=== PATIENT | female | born 2000 | race Caucasian/White ===

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

== ENCOUNTER 2020-05-15 13:25 | Outpatient (CLI) | payer BC, SELFPAY ==
[2020-05-17 23:23] LABS: Patient Race White; SARS-CoV-2 RNA Undetected (Undetected); SARS-CoV-2 Specimen Source Nasal
== END 2020-05-15 13:45 ==
PROVIDERS: PCP Pediatrics; Visit Provider Pediatrics
DX: Z20.828 Contact with and (suspected) exposure to other viral communicable diseases (principal)
CPT/HCPCS: U0003

== ENCOUNTER 2021-11-27 17:10 | Outpatient (REF) | payer BC, SELFPAY ==
[2021-11-29 12:00] LABS: COVID-19 RT-PCR UVMMC Result Negative (Negative)
== END 2021-11-27 17:11 | disposition home or self-care (01) ==
LOC: LBN 17:10
PROVIDERS: Visit Provider Physician Assistant Medical
DX: Z20.822 Contact with and (suspected) exposure to COVID-19 (principal); J06.9 Acute upper respiratory infection, unspecified
CPT/HCPCS: U0003

== ENCOUNTER 2022-02-03 19:32 | Emergency (ER) | payer BC, SELFPAY ==
[2022-02-03] VITALS (31 sets, daily range): BP systolic 99–143; BP diastolic 52–93; PULSE 98–142; RESP 16–23; TEMP 36.4; O2SAT 96–100
--- NOTE | 2022-02-03 19:51 | ED.GENADUL_ITS ---
Discharge Plan Disposition Patient Disposition: HOME Condition: Stable Discharge Details Clinical Impression: Allergic reaction, Urticaria Primary Care Provider: Laurel Lam ED Provider: Javon Goff Home Meds and New Rx's Prescriptions: New epinephrine 0.3 mg/0.3 mL auto-injector 0.3 mg IM ONCE Qty: 2 0RF Rx Instructions: as a single dose; may repeat once No Action medroxyprogesterone [Depo-Provera] 150 mg/mL syringe 150 mg IM [id number] magnesium 200 mg tablet 200 mg PO BID Qty: 60 1RF riboflavin (vitamin B2) 100 mg tablet 100 mg PO BID Qty: 60 1RF calcium carbonate [Calcium 600] 600 mg calcium (1,500 mg) tablet 600 mg PO DAILY sertraline [Zoloft] 100 mg tablet 100 mg PO DAILY Qty: 30 1RF Rx Instructions: take one tablet once a day bupropion HCl [Wellbutrin XL] 150 mg tablet extended release 24 hr 150 mg PO DAILY omeprazole 20 mg capsule,delayed release(DR/EC) 1 cap PO DAILY Label Comments: TAKE ONE CAPSULE BY MOUTH EVERY DAY albuterol sulfate 90 mcg/actuation HFA aerosol inhaler 2 inh INHALATION Q4H PRN PRN Label Comments: INHALE TWO PUFSS EVERY 4 HOURS NEEDED FOR SHORTNESS OF BREATH , WHEEZING, OR COUGH methylphenidate HCl [Concerta] 18 mg tablet extended release 24hr 18 mg PO BID MDD 36 mg Rx Instructions: one tablet twice a day at least 6 hours apart Discharge Instructions Instructions: Urticaria (ED) Additional Instructions: At this time your rash has resolved. It is unclear as to what caused it but it may have been a bug bite, a food allergy, or something else unknown. Please continue to drink plenty of fluid at home. Take 25 mg of Benadryl every 6-8 hours. Follow-up closely with your dietitian this week. An EpiPen has been sent to your pharmacy on file. Use this as directed if indicated. If you notice any worsening of your symptoms, or any new symptoms such as vomiting, diarrhea, fever, chills, shortness of breath, chest pain, numbness, weakness, or fainting , please return immediately to the emergency department for reevaluation. Please follow up with your primary care provider as soon as possible for reassessment and reevaluation. As always, it was a pleasure participating in your medical care today. Referrals: Laurel Lam [Primary Care Provider] - Discharge Data Discharge Date/Time-TO BE ENTERED AT DEPARTURE: 02/03/22 22:38 Medical Decision Making <Dinorah Chahal DO - Last Filed: 02/06/22 08:08> 21-year-old female with a history of anxiety, migraines and ADHD presents with pruritic rash noted to the upper extremities, chest and back that started almost 2 hours ago. No known new exposures. Admits to tongue tingling but denies any difficulty swallowing, difficulty breathing or vomiting. Heart rate 110s-120s. Patient appears anxious but nontoxic. She has normal respiratory rate and oxygen saturation. Normal oropharynx. Lungs clear bilaterally. She has scattered patchy erythema with urticaria noted to the bilateral upper extremities, lower chest and abdomen and back. Suspect allergic reaction. Considering her tachycardia and complaint of tingling in her tongue, will place an IV, give bolus IV fluids, IV Solu-Medrol, Pepcid, Benadryl and will monitor for the next 1 to 2 hours. Do not see an indication for epinephrine at this time but will continue to monitor. Case endorsed to oncoming provider to continue to monitor and if patient's symptoms improve, will plan for discharge to home. Medical Records Medical records reviewed: Yes I reviewed the patient's medical records. HPI <Dinorah Chahal DO - Last Filed: 02/06/22 08:08> General Mode of arrival: ambulatory . Date/Time Provider Initiated Documentation: 02/03/22 19:43 . Limitations to Documentation: no limitations . Information obtained by: patient . HPI Narrative: Patient is a 21-year-old female with a history of anxiety, migraines, ADHD who presents with itchy rash that started almost 2 hours ago. Patient states she noticed a bump under her left breast and then began itching on the sides of both breasts. She states she then noticed an itchy rash to her left inner wrist which has been spread to her abdomen and back. She denies any rash on her legs. She admits to tingling noted in her tongue prior to arrival but denies any difficulty swallowing, difficulty breathing or vomiting. Patient denies any known new meds, lotions, detergents, soaps, foods, animal exposures. Related Data Home Medications Medication Instructions Recorded Confirmed magnesium 200 mg tablet 200 mg PO BID #60 tabs 03/25/20 02/03/22 riboflavin (vitamin B2) 100 mg 100 mg PO BID #60 tabs 03/25/20 02/02/21 tablet calcium carbonate 600 mg calcium 600 mg PO DAILY 05/08/20 02/16/21 (1,500 mg) tablet (Calcium) sertraline 100 mg tablet (Zoloft) 100 mg PO DAILY #30 tabs 01/26/21 02/16/21 medroxyprogesterone 150 mg/mL 150 mg IM [id number] 02/02/21 02/03/22 intramuscular syringe (Depo-Provera) bupropion HCl 150 mg 24 hr tablet, 150 mg PO DAILY 01/27/22 02/03/22 extended release (Wellbutrin XL) albuterol sulfate 90 mcg/actuation 2 inh inhalation Q4H PRN PRN 02/03/22 02/03/22 aerosol inhaler epinephrine 0.3 mg/0.3 mL 0.3 mg (0.3 mL) IM ONCE #2 ea 02/03/22 injection, auto-injector methylphenidate HCl 18 mg 18 mg PO BID 02/03/22 02/03/22 tablet,extended release 24 hr (Concerta) omeprazole 20 mg capsule,delayed 1 cap PO DAILY 02/03/22 02/03/22 release Previous Rx's Medication Instructions Recorded magnesium 200 mg tablet 200 mg PO BID #60 tabs 03/25/20 riboflavin (vitamin B2) 100 mg 100 mg PO BID #60 tabs 03/25/20 tablet sertraline 100 mg tablet (Zoloft) 100 mg PO DAILY #30 tabs 01/26/21 epinephrine 0.3 mg/0.3 mL 0.3 mg (0.3 mL) IM ONCE #2 ea 02/03/22 injection, auto-injector Allergies Allergy/AdvReac Type Severity Reaction Status Date / Time house dust mite Allergy Mild Other (See Unverified 02/03/22 19:43 Comment) General Stated Complaint: Allergic MARIMAR: 3 Review of Systems <Dinorah Chahal DO - Last Filed: 02/06/22 08:08> All systems reviewed & are unremarkable except as noted in HPI and below Constitutional Constitutional: Denies chills, Denies excessive sweating, Denies fatigue, Denies fever(s), Denies weakness and Denies weight loss Eyes Eyes: Reports system reviewed and no additional complaints, except as documented and Denies blurry vision ENT Ears, Nose, Mouth, and Throat: Denies vertigo, Denies dizziness, Denies otalgia, Denies nasal congestion, Denies sore throat and Denies throat swelling Cardiovascular Cardiovascular: Denies chest pain, Denies syncope, Denies rapid heart rate and Denies dyspnea Respiratory Respiratory: Denies chest congestion, Denies cough, Denies pain on inspiration and Denies dyspnea Gastrointestinal Gastrointestinal: Denies abdominal pain, Denies diarrhea and Denies vomiting Genitourinary Genitourinary: Denies hematuria, Denies dysuria and Denies flank pain Musculoskeletal Musculoskeletal: Denies back pain and Denies joint swelling Integumentary/Breasts Skin/Breast: Reports lesions and Reports rash Neurologic Neurologic: Denies behavioral changes, Denies confusion, Denies vertigo, Denies dizziness, Denies syncope, Denies localized weakness and Denies weakness Psychiatric Psychiatric: Denies behavioral changes, Denies confusion and Denies depression Endocrine Endocrine: Denies excessive sweating and Denies fatigue Hematologic/Lymphatic Hematologic/Lymphatic: Denies easy bruising and Denies lymphadenopathy Allergic/Immunologic Allergic/Immunologic: Denies throat swelling PFSH <Dinorah Chahal DO - Last Filed: 02/06/22 08:08> All Active Problems (Updated 02/03/22 @ 19:59 by Dinorah Chahal DO) Allergic reaction (Acute) Urticaria (Acute) History of migraine headaches (Acute) Attention and concentration deficit (Acute) Social anxiety disorder (Acute) Chronic daily headache (Acute) Depression (Chronic) adverse reaction to fluoxetine - increased headaches. c/o excessive energy on Lexapro 5 mg. c/o excessive sedation and nausea on amitriptyline 10 mg Medical History (Updated 02/03/22 @ 19:59 by Dinorah Chahal DO) ADD (attention deficit disorder) Anxiety with depression Migraine, chronic, without aura Numbness and tingling in left arm Numbness and tingling of right arm Numbness in feet Obesity Self-imposed food restriction Family History Other Diabetes PGF Essential hypertension GP Heart disease PGM Hyperlipidemia GP Neoplasm PGM - breast PGF - Lukemia Paternal Grandmother Depression Social History (Updated 01/27/22 @ 08:11 by Ofe Armenta) Smoking/Tobacco Use Status: Never Smoking risk assessment performed?: Yes Alcohol Intake: current Alcohol Intake frequency: a few times a month Alcohol type: wine Drug use: Never Substance use type: does not use Do you feel safe at home: Yes Do you feel safe in your relationship?: Yes Exam <Dinorah Chahal DO - Last Filed: 02/06/22 08:08> Const General: cooperative and anxious Orientation: alert, awake and oriented x3 HENMT Head: normal to inspection Ears: hearing grossly normal bilaterally, external ears normal and TM's normal bilaterally General nose exam: external nose normal Face and sinus: normal facial exam Mouth: oral mucosae normal Teeth and gingiva: dentition normal Throat: posterior oropharynx normal Eyes General: appearance normal, both eyes and all related structures Eyelids: eyelids normal Pupils: PERRL EOM: EOM intact bilaterally Neck Neck: normal visual inspection Lymphatic: no lymphadenopathy noted Chest Chest: normal inspection of the chest Resp Effort & Inspection: normal respiratory effort and able to speak in complete sentences Auscultation: clear to auscultation bilaterally Cardio Rate: tachycardic Rhythm: regular rhythm GI Inspection: normal to inspection Palpation: soft, not firm, no guarding, no hepatosplenomegaly, no masses and nontender Auscultation: normal bowel sounds Back/Spine/Pelvis Back: no CVA tenderness Skin Other: Scattered patchy erythema with urticaria noted to the chest, abdomen, back and bilateral upper extremities. Neuro General: patient alert and patient awake Cognition: normal cognition Speech: speech normal Gait: normal gait Motor: muscle tone normal throughout Sensory Exam: no sensory deficits noted Extrem General: normal to inspection, full ROM and capillary refill normal Psych Appearance: grossly normal Mental Status: mental status grossly normal Speech and Movement: speech and movement normal Affect: normal affect Thought Process: normal Course <Dinorah Chahal DO - Last Filed: 02/06/22 08:08> Vital Signs Vital signs: Vital Signs Temperature 97.6 F 02/03/22 19:39 Pulse 119 H 02/03/22 19:39 Respiratory Rate 18 02/03/22 19:39 Blood Pressure 143/93 H 02/03/22 19:39 Pulse Oximetry 99 02/03/22 19:39 Temperature 97.6 F 02/03/22 19:39 Temperature Source Oral 02/03/22 19:39 Pulse 119 H 02/03/22 19:39 Respiratory Rate 18 02/03/22 19:39 Respiratory Effort Non-Labored 02/03/22 19:46 Respiratory Pattern Normal 02/03/22 19:46 Blood Pressure 143/93 H 02/03/22 19:39 Blood Pressure Position Sitting 02/03/22 19:39 Pulse Oximetry 99 02/03/22 19:39 Oxygen Delivery Method Room Air 02/03/22 19:39 Oxygen Flow Rate 0 02/03/22 19:39 Pain Level 0 02/03/22 19:39 Sign Out <Dinorah Chahal DO - Last Filed: 02/06/22 08:08> Sign Out Data: Sign Out Comment: Suspected allergic reaction with urticaria and tachycardia. No known history of anaphylaxis. Complained of tongue tingling but no respiratory distress. Monitor for 1 to 2 hours status post IV Solu-Medrol, Pepcid, Benadryl. If symptoms improve, can plan for discharge to home. Last updated by Dinorah Chahal DO at 02/03/22 19:53 PAWSS <Dinorah Chahal DO - Last Filed: 02/06/22 08:08> Have you Been Recently Intoxicated or Drunk Within the Last 30 days?: No Have you Ever Experienced Previous Episodes of Alcohol Withdrawal?: No Have you ever Experienced Withdrawal Seizures?: No Have you ever Experienced Delirium Tremens(DT)s?: No Have you ever undergone Alcohol Rehabilitation Treatment (i.e, inpt ot outpatient treatment programs)?: No Have you ever Experienced Blackouts?: No Have you ever Combined Alcohol with other Downers within the last 90 days?: No Have you ever Combined Alcohol with any other Substance of Abuse during the last 90 days?: No Positive Blood Alcohol level on Presentation? [PCS.BAL]: No Evidence of Increased Autonomic Activity (i.e. HR>120, tremor, sweating, agitation, nausea)?: No Result: 0 <Javon Goff DO - Last Filed: 02/03/22 22:16> Result: 0
[2022-02-03] MEDS: Famotidine 20 MG/2 ML VIAL IVP (20:22)
[2022-02-03] MEDS: diphenhydrAMINE 50 MG/ML VIAL IVP (20:22)
[2022-02-03] MEDS: methylPREDNISolone SUCC 125 MG VIAL IVP (20:22)
[2022-02-03] MEDS: Normal Saline 1,000 ML 1000 ML IV (20:23)
[2022-02-03] MEDS: Normal Saline 50 ML 200 ML (20:23)
--- NOTE | 2022-02-03 22:16 | ED.PROG_ITS ---
Date of service: 02/03/22 Time of Service: 22:16 Medical Decision Making Patient was signed out to me by Dr. Dinorah Chahal. Please refer to her HPI, physical exam assessment and plan. Request was to reassess after observation for an allergic reaction. It has been over 2-1/2 hours, and on reassessment the patient continues to look extremely well. Rash is completely resolved. She has no edema, neurologic dysfunction, tingling, or other abnormalities or complaints. No clinical evidence of anaphylaxis whatsoever. No residual bite chung or lesions. Patient is stable for discharge. Uncertain as to what caused the initial reaction, it may have been dietary, or from an arthropod bite. We will give EpiPen for home use. Recommend continued fluids and Benadryl at home as needed. Patient is feeling well and is requesting to go home. Discussed red flags which to return. I have extensively reviewed the treatment plan and discharge instructions with the patient and their family. I have addressed all patient concerns at this time. The patient and family was made aware of what symptoms to monitor for that would warrant a return to the emergency department. Discussed the plan with the patient and family, they demonstrate verbal understanding and agreement with our assessment and plan at this time. The documentation in this chart was dictated using [employer] dictation software. Please excuse any dictation errors. Sign Out Sign Out Data: Sign Out Comment: Suspected allergic reaction with urticaria and tachycardia. No known history of anaphylaxis. Complained of tongue tingling but no respiratory distress. Monitor for 1 to 2 hours status post IV Solu-Medrol, Pepcid, Benadryl. If symptoms improve, can plan for discharge to home. Last updated by Dinorah Chahal DO at 02/03/22 19:53 Discharge Plan Disposition Patient Disposition: HOME Condition: Stable Discharge Details Clinical Impression: Allergic reaction, Urticaria Primary Care Provider: Laurel Lam ED Provider: Javon Goff Home Meds and New Rx's Prescriptions: New epinephrine 0.3 mg/0.3 mL auto-injector 0.3 mg IM ONCE Qty: 2 0RF Rx Instructions: as a single dose; may repeat once No Action medroxyprogesterone [Depo-Provera] 150 mg/mL syringe 150 mg IM [id number] magnesium 200 mg tablet 200 mg PO BID Qty: 60 1RF riboflavin (vitamin B2) 100 mg tablet 100 mg PO BID Qty: 60 1RF calcium carbonate [Calcium 600] 600 mg calcium (1,500 mg) tablet 600 mg PO DAILY sertraline [Zoloft] 100 mg tablet 100 mg PO DAILY Qty: 30 1RF Rx Instructions: take one tablet once a day bupropion HCl [Wellbutrin XL] 150 mg tablet extended release 24 hr 150 mg PO DAILY omeprazole 20 mg capsule,delayed release(DR/EC) 1 cap PO DAILY Label Comments: TAKE ONE CAPSULE BY MOUTH EVERY DAY albuterol sulfate 90 mcg/actuation HFA aerosol inhaler 2 inh INHALATION Q4H PRN PRN Label Comments: INHALE TWO PUFSS EVERY 4 HOURS NEEDED FOR SHORTNESS OF BREATH , WHEEZING, OR COUGH methylphenidate HCl [Concerta] 18 mg tablet extended release 24hr 18 mg PO BID MDD 36 mg Rx Instructions: one tablet twice a day at least 6 hours apart Discharge Instructions Instructions: Urticaria (ED) Additional Instructions: At this time your rash has resolved. It is unclear as to what caused it but it may have been a bug bite, a food allergy, or something else unknown. Please continue to drink plenty of fluid at home. Take 25 mg of Benadryl every 6-8 hours. Follow-up closely with your dietitian this week. An EpiPen has been sent to your pharmacy on file. Use this as directed if indicated. If you notice any worsening of your symptoms, or any new symptoms such as vomiting, diarrhea, fever, chills, shortness of breath, chest pain, numbness, weakness, or fainting , please return immediately to the emergency department for reevaluation. Please follow up with your primary care provider as soon as possible for reassessment and reevaluation. As always, it was a pleasure participating in your medical care today. Referrals: Laurel Lam [Primary Care Provider] -
== END 2022-02-03 22:38 | disposition home or self-care (01) ==
PROVIDERS: Emergency Provider Student in an Organized Health Care Education/Training Program; PCP Nurse Practitioner Family
DX: L50.0 Allergic urticaria (principal); R00.0 Tachycardia, unspecified; R20.2 Paresthesia of skin
CPT/HCPCS: 81025; 96361; 96374; 96375; 99284; J1200; J2930

== ENCOUNTER 2022-02-11 01:46 | Outpatient (CLI) | payer BC, SELFPAY ==
--- NOTE | 2022-02-11 13:00 | NS.NUTBLAN_ITS ---
Sadia was referred for nutritional counseling for weight management and food aversions. 5'4 206 lbs BMI: 35 Sadia reports gaining over 60lbs in last 4 years and since starting the Depo shot. She has been dx with food aversions since childhood and ADD. She recently went to [facility] ER with hives after restarting wellbutrin. She does not tolerate adderal. She also has been struggling with migraines and has been told that hypoglycemia could be contributing to migraines. Diet recall: B: flavored coffee fron DD, bagel with CC, granola bar. L: sandwich, D: Syriac food. Typically she cooks dinner at least 5 x per week. Exercise: has started to swim again. Used to be competitive swimmer. Session today focused on lowering simple carbs in diet and pairing carbohydrate with protein/fats for optimal absorption. Hypoglycemia/migraines most likely came from eating high sugar content meals that resulted in increased insulin secretion leading to hypoglycemia and migraines. By balancing carbs with protein/fats- blood sugars should remain more constant. Also, discussed avoiding MSG as it too can trigger migraines. MSG is in many restaurant and prepared foods. Encouraged Sadia to use phone coleen to track her meals and to limit carbs to no more than 100 grams daily. Also, encouraged daily exercise of 30-60 minutes. Goal: 10% weight loss in next 90 days. Goal Wt: 150-160 lbs. No follow up planned at this time.
== END 2022-02-11 01:47 | disposition home or self-care (01) ==
LOC: DS 01:46
PROVIDERS: PCP Nurse Practitioner Family; Visit Provider Dietitian, Registered
DX: E66.8 Other obesity (principal); F98.8 Other specified behavioral and emotional disorders with onset usually occurring in childhood and adolescence; F50.89 Other specified eating disorder; Z71.3 Dietary counseling and surveillance
CPT/HCPCS: 97802

== ENCOUNTER → 2022-04-12 00:49 | Outpatient (CLI) | payer BC, SELFPAY ==
--- NOTE | 2022-04-12 06:45 | DI.MRI_ITS ---
Exam(s) MR BRAIN WO EXAM: MR BRAIN WO CLINICAL HISTORY: ? MS,paresthesias,r20.2 TECHNIQUE: Multiplanar multisequence MRI of the brain was performed. COMPARISON: No exams were available for comparison FINDINGS: CEREBRAL PARENCHYMA: There is no evidence of intracranial hemorrhage, mass effect, or shift of midline structures. There are no extra-axial fluid collections. Ventricles are not enlarged or shifted. There is no significant focal signal abnormality in the cerebellar hemispheres nor within the hieu, m idbrain, and thalami. There is no abnormal signal abnormality in the periventricular white matter. No evidence of demyelin ating plaques, as per request. There is no significant focal signal abnormality evident on diffusion imaging to suggest acute ischem ic event. No evidence of microhemorrhages on SWI sequence. PITUITARY GLAND: No mass nor parasellar abnormality. No obvious abnormality in the cavernous sinuses. FLOW VOIDS: The expected flow void are noted. No evidence of obvious aneurysm nor obvious vascular ma lformation. PARANASAL SINUSES: Mild mucosal thickening is seen in the anterior aspect of the left maxillary sinus . No associated fluid level. Also some mucosal thickening noted in the left frontal sinus. Sphenoi d sinus is unremarkable. No abnormal signal at the level the mastoid air cells. ORBITS: No obvious findings. IMPRESSION: No significant intracranial findings on this noninfused MRI scan of the brain. No evidence of demyelinating plaques in the brain, as per request. There is some mucosal thickening in the left maxillary and left frontal sinuses.. DATA REPOSITORY:
== END ==
PROVIDERS: PCP Nurse Practitioner Family; Visit Provider Psychiatry & Neurology Neurology
DX: R20.2 Paresthesia of skin (principal)
CPT/HCPCS: 70551

== ENCOUNTER 2022-04-12 01:37 | Outpatient (CLI) | payer BC, SELFPAY ==
[2022-04-12 08:41] LABS: HCT 39.6 % (36.0-46.0); HGB 12.8 g/dL (11.2-15.7); MCH 27.6 pg (27.0-33.0); MCHC 32.3 % (32.0-36.0); MCV 85 fL (80-95); Platelet Count 289 10^3/uL (130-400); RBC 4.64 10^6/uL (3.93-5.22); RDW 13.2 % (11.7-14.6); RDW-SD 40.7 fL
[2022-04-12 08:44] LABS: ESR 23 mm/hr (0-20)
[2022-04-12 09:01] LABS: Hemoglobin A1C 5.4 % (<5.7)
[2022-04-12 09:40] LABS: ALT 37 U/L (14-59); AST 19 U/L (15-37); Alkaline Phosphatase 69 U/L (46-116); Anion Gap 11.2 mmol/L (3-11); BUN 17 mg/dL (7-18); Bilirubin, Total 0.6 mg/dL (0.2-1.0); CO2 25.8 mmol/L (21.0-32.0); CREATININE 0.8 mg/dL (0.55-1.02); Calcium 9.3 mg/dL (8.5-10.1); Chloride 105 mmol/L (98-107); Estimated GFR 106.77 (mL/min/1.73m2); Folate 15.3 ng/mL (8.6-20.0); Glucose 90 mg/dL (74-106); Potassium 3.5 mmol/L (3.5-5.1); Sodium 142 mmol/L (136-145); TSH (W/Ref FT4) 2.96 uIU/mL (0.36-3.74); Total Protein 8.4 g/dL (6.4-8.2); Vitamin B12 264 pg/mL (193-986)
[2022-04-13 15:02] LABS: Albumin 56.9 % (55.8-66.1); Albumin g/dL 4.2 g/dL (3.6-5.2); Total Protein 7.4 g/dL (6.3-8.2)
== END 2022-04-12 01:38 | disposition home or self-care (01) ==
LOC: LBO 01:37
PROVIDERS: PCP Nurse Practitioner Family; Visit Provider Psychiatry & Neurology Neurology
DX: R20.2 Paresthesia of skin (principal); R73.9 Hyperglycemia, unspecified; G62.9 Polyneuropathy, unspecified
CPT/HCPCS: 36415; 80053; 85027; 85652; 82607; 82746; 83036; 84165; 84443

== ENCOUNTER 2022-06-27 04:15 | Outpatient (CLI) | payer BC, SELFPAY ==
[2022-06-27 10:12] LABS: Vitamin B12 468 pg/mL (193-986)
== END 2022-06-27 04:16 | disposition home or self-care (01) ==
PROVIDERS: PCP Nurse Practitioner Family; Visit Provider Psychiatry & Neurology Neurology
DX: G62.9 Polyneuropathy, unspecified (principal)
CPT/HCPCS: 36415; 82607

== ENCOUNTER 2023-09-21 05:20 | Outpatient (CLI) | payer SELFPAY ==
[2023-09-22 10:31] LABS: HBs Antibody, Quant 10.8 mIU/mL (See Note); Hepatitis B Surface Ab Positive (See Note)
[2023-09-25 13:16] LABS: TB Interpretation Negative (Negative); TB1 Ag minus Nil 0.03 IU/ml; TB2 Ag minus Nil 0.02 IU/mL
== END 2023-09-21 05:21 | disposition home or self-care (01) ==
LOC: LBO 05:20
PROVIDERS: PCP Nurse Practitioner Family; Visit Provider Nurse Practitioner Family
DX: Z02.1 Encounter for pre-employment examination (principal)
CPT/HCPCS: 36415; 86706; 86480

== ENCOUNTER 2024-03-20 03:51 | Outpatient (CLI) | payer OTHER, SELFPAY ==
[2024-03-20 15:12] LABS: Abs Immature Grans 0.03 10^3/uL (0.0-0.06); Absolute Basophil Count 0.05 10^3/uL (0.0-0.2); Absolute Eosinophil Count 0.47 10^3/uL (0.0-0.7); Absolute Lymphocyte Count 3.48 10^3/uL (1.2-3.4); Absolute Monocyte Count 0.61 10^3/uL (0.1-0.8); Absolute Neutrophil Count 4.46 10^3/uL (1.2-6.7); Basophils % 0.5 %; Eosinophils % 5.2 %; HCT 42.8 % (36.0-46.0); HGB 13.9 g/dL (11.2-15.7); Immature Grans % 0.3 %; Lymphocytes % 38.2 %; MCH 28.1 pg (27.0-33.0); MCHC 32.5 % (32.0-36.0); MCV 87 fL (80-95); MPV 9.6 fL (8.0-11.0); Monocytes % 6.7 %; Neutrophils % 49.1 %; Platelet Count 331 10^3/uL (130-400); RBC 4.94 10^6/uL (3.93-5.22); RDW 13.2 % (11.7-14.6); RDW-SD 41.1 fL
[2024-03-20 15:27] LABS: PTT Activated 28.1 sec (23.6-32.8)
[2024-03-20 15:40] LABS: ALT 33 U/L (14-59); AST 27 U/L (15-37); Albumin 4.2 g/dL (3.4-5.0); Alkaline Phosphatase 82 U/L (46-116); Anion Gap 12.5 mmol/L (3-11); BUN 12 mg/dL (7-18); Bilirubin, Total 0.31 mg/dL (0.2-1.0); CO2 24.5 mmol/L (21.0-32.0); CREATININE 0.9 mg/dL (0.55-1.02); Calcium 9.6 mg/dL (8.5-10.1); Chloride 103 mmol/L (98-107); Estimated GFR 91.55 (mL/min/1.73m2); Glucose 97 mg/dL (74-106); Potassium 3.4 mmol/L (3.5-5.1); Sodium 140 mmol/L (136-145); Total Protein 8.7 g/dL (6.4-8.2)
[2024-03-23 12:27] LABS: Coag FactorVIII Activity Assay 159 % (55 - 200); von Willebrand Factor Activity 165 % (55 - 200); von Willebrand Factor Ag 176 % (55 - 200)
== END 2024-03-20 03:52 | disposition home or self-care (01) ==
PROVIDERS: PCP Nurse Practitioner Family; Visit Provider Nurse Practitioner Family
DX: R58 Hemorrhage, not elsewhere classified (principal)
CPT/HCPCS: 36415; 80053; 85240; 85246; 85390; 85397; 85025; 85610; 85730

== ENCOUNTER 2024-06-18 20:35 | Emergency (ER) | payer OTHER, SELFPAY ==
[2024-06-18] VITALS (9 sets, daily range): BP systolic 104–139; BP diastolic 74–90; PULSE 96–113; RESP 16; TEMP 35.9–36.8; O2SAT 98–100
--- OUTSIDE RECORDS SUMMARY | 2024-06-18 20:43 | XMS_ITS | Encounter Summary ---
Author Organization [facility] Address [address] [place] [address] Care Team Providers Care Model Photographers' Name Role Phone Unavailable Primary Care Provider Unavailabl e Encounter Details Date Type Department Care Team (Late st Contact Info) Description 11/28/2021 Lab Requisition [facility] Pathology & Laboratory Medicine - [facility] [address] [place] [address] Outr Resulting Lab, Provider Social History Tobacco Use Types Packs/Day Years Used Date Smoking Tobacco: Never Assessed Comments Unknown Sex and Gender Information Value Date Recorded Sex Assigned at Not on file Legal Sex Female 2:12 EDT Gender Identity Not on file Sexual Orientation Not on file documented as of this encounter Plan of Treatment Not on file documented as of this encounter Procedures Procedure Name Priority Date/Time Associated Diagnosis Comments ZZCOVID-19 TEST [facility] PCR Today 11/27/2021 14:54 EDT COVID-19 TESTING Routine 11/27/2021 14:5 4 EDT documented in this encounter Results * COVID-19 TEST [facility] PCR (11/27/2021 14:54 EDT) Swab 11/27/2021 14:5 4 EDT 11/28/2021 15:43 EDT us Provider Outr Resulting Lab MICROBIOLOGY - GENER AL ORDERABLES Final Result [facility] [address] [place] [address] * COVID-19 TESTING (11/27/2021 14:54 EDT) COVID-19 rt-PCR Result Negative Negative 11/29/2021 11:55 EDT [facility] Comment: This test has not been FDA cleared or approved. This test has been authorized by FDA under an EUA for use by authorized laboratories. This test has been authorized only for detection of nucleic acid from 2019-nCoV, not for any other viruses or pathogens. This test is only authorized for the duration of the declaration that circumstances exist justifying the authorization of emergency use of in vitro diagnostic tests for detection and/or diagnosis of 2019-nCoV under section 564(b)(1) of Act, 21 U.S.C ?? 360bbb-3(b) (1), unless the authorization is terminated or revoked sooner. Negative results do not preclude 2019-nCoV infection and should not be used as the sole basis for treatment or other patient management decisions. Negative results must be combined with clinical observations, patient history, and epidemiological information. Testing was performed using the naty SARS-CoV-2 assay ([employer] on the Naty 6800 System Performing Lab Naty 6800 [facility] 11/29/2021 11:55 EDT [facility] Swab 11/27/2021 14:5 4 EDT 11/28/2021 15:43 EDT us Provider Outr Resulting Lab MICROBIOLOGY - GENER AL ORDERABLES Final Result [facility] [address] [place] [address] documented in this encounter Visit Diagnoses Not on filedocumented in this encounter
--- OUTSIDE RECORDS SUMMARY | 2024-06-18 20:43 | XMS_ITS | Encounter Summary ---
Author Organization [facility] Address [address] [place] [address] Care Team Providers Care Clinical Exercise Physiologist Name Role Phone Unavailable Primary Care Provider Unavailabl e Encounter Details Date Type Department Care Team (Late st Contact Info) Description 09/21/2023 Lab Requisition [facility] Pathology & Laboratory Medicine - [facility] [address] [place] [address] Outr Resulting Lab, Provider Social History Tobacco [...] Procedure Name Priority Date/Time Associated Diagnosis Comments HEPATITIS B SURFACE ANTIBODY Routine 09/21/2023 12:58 EST documented in this encounter Results * HEPATITIS B SURFACE ANTIBODY (09/21/2023 12:58 EST) Hep B Surface Ab, Quantitative 10.8 See Note mIU/mL 09/22/2023 10:26 EST [facility] Comment: Reference Range for Hep B Surface Ab, Quant: Positive: >= 10.0 mIU/mL Negative: ??< 10.0 mIU/mL Patient is presumed to be immune to infection with Hepatitis B Virus. Hep B Surface Ab, Qualitative Positive See Note 09/22/2023 10:26 EST [facility] Comment: Reference Range for Hep B Surface Ab, Qual: Unvaccinated: ??Negative Vaccinated: ??Positive Blood VENOUS BLOOD / Unknown 09/21/2023 12:58 EST 09/21/2023 21:17 EST us Provider Outr Resulting Lab CHEMISTRY & BLOOD GA S ORDERABLES Final Result [facility] [address] [place] [address] documented in this encounter Visit Diagnoses Not on filedocumented in this encounter
--- OUTSIDE RECORDS SUMMARY | 2024-06-18 20:43 | XMS_ITS | Clinical Summary ---
Author Organization [facility] Address [facility] [place] [address] Care Team Providers Care Clerical Clerk Name Role Phone Tigre Benito MD, Pamela Primary Care Provider [phone] Allergies No known active allergies Medications Medication Sig Dispensed Refills Start Date End Date Status CIS Free Text Med - Zyrtec 07/27/2005 Active montelukast (SINGULAIR) 4 mg chewable tablet 07/27/2005 Active polyethylene glycol (MIRALAX) 17 gram packet 07/27/2005 Active olopatadine (PATANOL) 0.1 % ophthalmic solution 07/27/2005 Activ e Social History Tobacco Use Types Packs/Day Years Used Date Smoking Tobacco: Never Assessed Sex and Gender Information Value Date Recorded Sex Assigned at Not on file Gender Identity Not on file Sexual Orientation Not on file Plan of Treatment Upcoming Encounters Date Type Department Care Team (Late st Contact Info) Description 10/01/2024 9:00 AM EDT Office Visit Hematology [place] [address] Yolis Fernando MD [facility] [address] [place] [address] Mag Solis RN 10/21/2024 11:00 AM EDT Office Visit Hematology [place] [address] Yolis Fernando MD [facility] [address] [place] [address] Mag Solis, RN Health Maintenance Due Date Last Done Comments Chlamydia Screening 02/04/2015 HPV vaccine (1 - 3-dose series) 02/04/2015 HIV screen 02/04/2018 Hepatitis C Screening 02/04/2018 Hepatitis B vaccine (0-59 yrs) (1) 02/04/2019 Tetanus/Diphtheria/Pertussis Vaccines (1 - Tdap) 02/04 PAP Smear 02/04/2021 Covid-19 Vaccine (1 - 2023- season) 2024 Influenza (Flu) vaccine (1 o f 1 - Influenza standard series) 03/24/2024 Care Teams Clerical Clerk Relationship Specialty Start Date End Date Pamela Landeros MD [address] [place] [address] [place] [address] PCP - General 06/15/10
--- OUTSIDE RECORDS SUMMARY | 2024-06-18 20:43 | XMS_ITS | Encounter Summary ---
Author Organization [facility] Address [address] [place] [address] Care Team Providers Care Operations Specialists Name Role Phone Unavailable Primary Care Provider Unavailabl e Encounter Details Date Type Department Care Team (Late st Contact Info) Description 09/22/2023 Lab Requisition [facility] Pathology & Laboratory Medicine - [facility] [address] [place] [address] Outr Resulting Lab, Provider Social History Tobacco [...] Procedure Name Priority Date/Time Associated Diagnosis Comments QUANTIFERON MITOGEN (PERFORMABLE) Today 09/21/2023 12:58 EST QUANTIFERON TB2 (PERFORMABLE) Today 09/21/2023 12:58 EST QUANTIFERON TB1 (PERFORMABLE) Today 09/21/2023 12:58 EST QUANTIFERON NIL (PERFORMABLE) Today 09/21/2023 12:58 EST QUANTIFERON INTERPRETATION (PERFORMABLE) Today 09/21/2023 12:58 EST QUANTIFERON TB GOLD PLUS Routine 09/21/2023 12:58 EST documented in this encounter Results * QUANTIFERON INTERPRETATION (PERFORMABLE) (09/21/2023 12:58 EST) Quantiferon Interpretation Negative Negative 09/25/2023 13:10 EST [facility] Comment:No interferon-gamma response to M. tuberculosis antigens was detected. ??Infection with M. tuberculosis is unlikely. A single negative result does not exclude infection with M. tuberculosis. ??In patients at high risk for M. tuberculosis infection, a second test should be considered. TB1 Ag minus Nil 0.03 IU/ml 09/25/19 13:10 EST [facility] TB2 Ag minus Nil 0.02 IU/mL 09/25/19 13:10 EST [facility] Blood VENOUS BLOOD / Unknown 09/21/2023 12:58 EST 09/25/2023 13:08 EST us Provider Outr Resulting Lab IMMUNOLOGY AND SEROL OGY ORDERABLES Final Result Performing Organization Address City/[facility]/ZIP Co de Phone Number [facility] [address] [place] [address] * QUANTIFERON MITOGEN (PERFORMABLE) (09/21/2023 12:58 EST) Blood VENOUS BLOOD / Unknown 09/21/2023 12:58 EST 09/22/2023 17:05 EST us Provider Outr Resulting Lab IMMUNOLOGY AND SEROL OGY ORDERABLES Final Result Performing Organization Address City/[facility]/ZIP Co de Phone Number [facility] [address] [place] [id number] * QUANTIFERON TB2 (PERFORMABLE) (09/21/2023 12:58 EST) Blood VENOUS BLOOD / Unknown 09/21/2023 12:58 EST 09/22/2023 17:05 EST us Provider Outr Resulting Lab IMMUNOLOGY AND SEROL OGY ORDERABLES Final Result [facility] [address] [place] [id number] * QUANTIFERON TB1 (PERFORMABLE) (09/21/2023 12:58 EST) Blood VENOUS BLOOD / Unknown 09/21/2023 12:58 EST 09/22/2023 17:05 EST us Provider Outr Resulting Lab IMMUNOLOGY AND SEROL OGY ORDERABLES Final Result Performing Organization Address [facility]/ZIP Co de Phone Number [facility] [address] [place], [place] [id number] * QUANTIFERON NIL (PERFORMABLE) (09/21/2023 12:58 EST) Blood VENOUS BLOOD / Unknown 09/21/2023 12:58 EST 09/22/2023 17:05 EST us Provider Outr Resulting Lab IMMUNOLOGY AND SEROL OGY ORDERABLES Final Result Performing Organization Address City/[facility] Co de Phone Number [facility] [address] [place], [place] [id number] documented in this encounter Visit Diagnoses Not on filedocumented in this encounter
--- OUTSIDE RECORDS SUMMARY | 2024-06-18 20:43 | XMS_ITS | Encounter Summary ---
Author Organization [facility] Address [address] [place] [address] Care Team Providers Care Oracle Applications Developer Name Role Phone Unavailable Primary Care Provider Unavailabl e Encounter Details Date Type Department Care Team (Late st Contact Info) Description 04/12/2022 Lab Requisition [facility] Pathology & Laboratory Medicine - [facility] [address] [place] [address] Outr Resulting Lab, Provider Social History Tobacco [...] Procedure Name Priority Date/Time Associated Diagnosis Comments SPEP, INCLUDES QUANTITATION OF MONOCLONAL SPIKE PERFORMABLE Today 04/12/2022 8:30 EDT SPEP, INCLUDES QUANTITATION OF MONOCLONAL SPIKE Routine 04/12/2022 8:30 EDT PROTEIN, TOTAL Today 04/12/2022 8:30 EDT documented in this encounter Results * SPEP, INCLUDES QUANTITATION OF MONOCLONAL SPIKE PERFORMABLE (04/12/2022 8:30 EDT) Albumin % 56.9 55.8 - 66.1 % 04/13/2022 14:57 EDT [facility] Albumin g/dL 4.2 3.6 - 5.2 g/dL 04/13/2022 14:57 EDT [facility] Alpha-1 % 4.4 2.9 - 4.9 % 04/13/2022 14:57 EDT [facility] Alpha-1 g/dL 0.30 0.15 - 0.40 g/dL 04/13/2022 14:57 [facility] Alpha-2 % 11.0 7.1 - 11.8 % 04/13/2022 14:57 [facility] Alpha-2 g/dL 0.80 0.50 - 1.00 g/dL 04/13/2022 14:57 [facility] Beta % 12.0 8.4 - 13.1 % 04/13/2022 14:57 [facility] Beta g/dL 0.90 0.60 - 1.20 g/dL 04/13/2022 14:57 [facility] Gamma % 15.7 11.1 - 18.8 % 04/13/2022 14:57 [facility] Gamma g/dL 1.20 0.60 - 1.60 g/dL 04/13/2022 14:57 [facility] SPEP Comment No apparent monoclonal protein seen on serum electrophoresis 04/13/2022 14:57 [facility] Comment:See scanned/suppleme ntary report. Total Protein 7.4 6.3 - 8.2 g/dL 04/13/2022 14:57 [facility] Blood VENOUS BLOOD / Unknown 04/12/2022 8:30 EDT 04/12/2022 16:37 EDT us Provider Outr Resulting Lab CHEMISTRY & BLOOD GA S ORDERABLES Final Result Performing Organization Address City/[facility]/ZIP Co de Phone Number [facility] [address] [place] [address] * PROTEIN, TOTAL (04/12/2022 8:30 EDT) Blood VENOUS BLOOD / Unknown 04/12/2022 8:30 EDT 04/12/2022 16:37 EDT us Provider Outr Resulting Lab CHEMISTRY & BLOOD GA S ORDERABLES Final Result [facility] [address] [place] [phone] documented in this encounter Visit Diagnoses Not on filedocumented in this encounter
--- OUTSIDE RECORDS SUMMARY | 2024-06-18 20:43 | XMS_ITS | Referral Summary ---
Author Organization [facility] Address [address] [place] [address] Care Team Providers Care Biomass Plant Technician Name Role Phone Unavailable Primary Care Provider Unavailabl e Social History Tobacco Use Types Packs/Day Years Used Date Smoking Tobacco: Never Assessed Comments Unknown Sex and Gender Information Value Date Recorded Sex Assigned at Not on file Legal Sex Female 2:12 EDT Gender Identity Not on file Sexual Orientation Not on file Plan of Treatment Not on file
--- OUTSIDE RECORDS SUMMARY | 2024-06-18 20:43 | XMS_ITS | Clinical Summary ---
Author Organization [facility] Address [address] [place] [address] Care Team Providers Care Batch Blender Name Role Phone Unavailable Primary Care Provider Unavailabl e Social History Tobacco Use Types Packs/Day Years Used Date Smoking Tobacco: Never Assessed Comments Unknown Sex and Gender Information Value Date Recorded Sex Assigned at Not on file Legal Sex Female 2:12 EDT Gender Identity Not on file Sexual Orientation Not on file Plan of Treatment Health Maintenance Due Date Last Done Comments Hepatitis C Screen 2000 Hepatitis B Vaccine (1 of 3 - 19+ 3-dose series) 02/04 COVID-19 Vaccine ( season) 2024
--- NOTE | 2024-06-18 21:04 | ED.GENADUL_ITS ---
Discharge Plan Disposition Patient Disposition: Home Condition: Stable Discharge Details Clinical Impression: Migraine Primary Care Provider: Laurel Lam ED Provider: Philly Almaguer Home Meds and New Rx's Prescriptions: Continued medroxyprogesterone [Depo-Provera] 150 mg/mL syringe 150 mg IM [id number] Qulipta 60 mg tablet 60 mg PO DAILY Qty: 30 5RF diclofenac potassium 50 mg tablet 50 mg PO TID PRN (Reason: pain) Qty: 36 3RF mecobalamin (vitamin B12) 1,000 mcg tablet,chewable 3,000 mcg PO DAILY venlafaxine 37.5 mg capsule,extended release 24hr 37.5 mg PO DAILY Qty: 90 3RF Rx Instructions: in addition to 75mg daily for total 112.5mg daily venlafaxine 75 mg capsule,extended release 24hr 75 mg PO DAILY Qty: 90 3RF Rx Instructions: along with 37.5mg daily for total 112.5mg daily epinephrine 0.3 mg/0.3 mL auto-injector 0.3 mg IM ONCE Qty: 2 0RF Rx Instructions: as a single dose; may repeat once Discharge Instructions Instructions: Migraine in adults, Headache, Adult ED Additional Instructions: Please keep your appointment with your neurologist as previously scheduled. Please take Tylenol or Ibuprofen with food every 4-6 hours as needed for pain and swelling. Increase oral fluids. You may also take Benadryl 1 to 2 tablets every 6-8 hours as needed. Follow up with primary care provider in 3-5 days. Return to ED sooner if any worsening or concerns. Referrals: Laurel Lam [Primary Care Provider] - 5 days HPI General Mode of arrival: ambulatory . Date/Time Provider Initiated Documentation: 06/18/24 20:36 . Limitations to Documentation: no limitations . Information obtained by: patient, RN notes reviewed and old records reviewed . HPI Narrative: 24-year-old female presents to the ER with chief complaint of migraine x 1 week. Patient does have a history of migraines however she reports this is somewhat different as she has had an aura. She also reports dizziness and nausea no vomiting. She also reports light sensitivity and blurred vision. Denies any fever or neck pain head injuries or any other associated symptoms. She was seen at urgent care this morning and was given Toradol IM which did little to nothing to relieve her pain. She is alert and oriented x 4. She does have extensive medications at home she does have Trileptal and diclofenac along with some triptans however she does not take triptans as they make her sick. Past medical history includes OCD, anxiety with depression, ADD. Related Data Home Medications ?Medication ?Instructions ?Recorded ?Confirmed medroxyprogesterone 150 mg/mL 150 mg IM [id number] 02/02/21 06/18/24 intramuscular syringe (Depo-Provera) epinephrine 0.3 mg/0.3 mL 0.3 mg (0.3 mL) IM ONCE #2 ea 02/03/22 06/18/24 injection, auto-injector mecobalamin (vitamin B12) 1,000 3,000 mcg PO DAILY 12/15/22 06/18/24 mcg chewable tablet venlafaxine 37.5 mg 37.5 mg PO DAILY #90 caps 02/12/24 06/18/24 capsule,extended release 24 hr venlafaxine 75 mg capsule,extended 75 mg PO DAILY #90 caps 02/12/24 06/18/24 release 24 hr atogepant 60 mg tablet (Qulipta) 60 mg PO DAILY #30 tabs 04/25/24 06/18/24 diclofenac potassium 50 mg tablet 50 mg PO TID PRN pain #36 tabs 04/25/24 06/18/24 Previous Rx's ?Medication ?Instructions ?Recorded epinephrine 0.3 mg/0.3 mL 0.3 mg (0.3 mL) IM ONCE #2 ea 02/03/22 injection, auto-injector venlafaxine 37.5 mg 37.5 mg PO DAILY #90 caps 02/12/24 capsule,extended release 24 hr venlafaxine 75 mg capsule,extended 75 mg PO DAILY #90 caps 02/12/24 release 24 hr atogepant 60 mg tablet (Qulipta) 60 mg PO DAILY #30 tabs 04/25/24 diclofenac potassium 50 mg tablet 50 mg PO TID PRN pain #36 tabs 04/25/24 Allergies Allergy/AdvReac Type Severity Reaction Status Date / Time house dust mite Allergy Mild Other (See Verified 06/18/24 20:51 Comment) bupropion (From Wellbutrin) AdvReac Intermediate Skin Rash Verified 06/18/24 20:51 General Stated Complaint: Headache MARIMAR: 3 Review of Systems All systems reviewed & are unremarkable except as noted in HPI and below Constitutional Constitutional: Reports as per HPI, Denies fever(s) and Reports headache(s) ENT Ears, Nose, Mouth, and Throat: Reports headache(s) Neurologic Neurologic: Reports headache(s) Exam Narrative Exam Narrative: Constitutional: Alert and oriented x3. Appears stated age. Normal body habitus. Head: Normocephalic, no trauma. Eyes: Pupils PERRL, Red reflex noted, EOM's intact. Eyelids symmetrical without lesions, discharge, or swelling. ENT: Bilateral TM's WNL, External ear normal to inspection, no mastoid TTP, swelling, or erythema, Nasal turbinates WNL, no nasal discharge. Normal dentition, Posterior pharynx WNL, no exudate. Chest: RRR, Normal S1, S2, distal pulses intact. Resp: Lungs clear to auscultation bilaterally, no wheezes, rales, or rhonchi. Abdomen: Soft, non-distended, Normoactive bowel sounds all 4 quads. Musculoskeletal: Normal gait, Moves all 4 extremities without difficulty. Skin: No suspicious rashes or lesions. Capillary refill less than 2 sec. Neurologic: Cranial nerves II-XII intact. Alert and oriented x 3. Motor: No deficits noted. Sensory: Intact bilaterally all 4 extremities. Hematologic/Lymphatic: No ecchymosis, no lymphadenopathy. Course Vital Signs Vital signs: Vital Signs Temperature 35.9 C L 06/18/24 20:43 Pulse 99 H 06/18/24 20:43 Respiratory Rate 16 06/18/24 20:43 Blood Pressure 139/74 06/18/24 20:43 Pulse Oximetry 99 06/18/24 20:43 Temperature 35.9 C L 06/18/24 20:43 Temperature Source Temporal Artery Scan 06/18/24 20:43 Pulse 99 H 06/18/24 20:43 Respiratory Rate 16 06/18/24 20:43 Respiratory Effort Normal, Non-Labored 06/18/24 20:50 Blood Pressure 139/74 06/18/24 20:43 Pulse Oximetry 99 06/18/24 20:43 Oxygen Delivery Method Room Air 06/18/24 20:43 Oxygen Flow Rate 0 06/18/24 20:43 Pain Level 8 06/18/24 20:43 Medical Decision Making 24-year-old female presents to the ER with chief complaint of migraine x 1 week. Patient does have a history of migraines however she reports this is somewhat different as she has had an aura. She also reports dizziness and nausea no vomiting. She also reports light sensitivity and blurred vision. Denies any fever or neck pain head injuries or any other associated symptoms. She was seen at urgent care this morning and was given Toradol IM which did little to nothing to relieve her pain. She is alert and oriented x 4. She does have extensive medications at home she does have Trileptal and diclofenac along with some triptans however she does not take triptans as they make her sick. Past medical history includes OCD, anxiety with depression, ADD. A headache cocktail given including Compazine, Tylenol and Benadryl. Instructed clinical staff anesthesiologist to push oral fluids. 2201: On patient reevaluation she reports that her headache is improving. She feels well enough to go home. Will discharge with follow-up with PCP and neurology as previously scheduled. This text was generated using Ingresseation system, please disregard any oddities of phrase or misspellings. Medical Records Medical records reviewed: Yes I reviewed the patient's medical records. Quality:SDOH Health Related Social Needs: No Data to Display PFSH All Active Problems (Updated 06/18/24 @ 22:03 by Philly Almaguer NP) Migraine (Chronic) Medication overuse headache (Acute) Status migrainosus (Acute) Vitamin B12 deficiency (Acute) Chronic headache (Acute) Paresthesias (Acute) Migraine, chronic, without aura (Acute) Attention and concentration deficit (Acute) Social anxiety disorder (Acute) Depression (Chronic) adverse reaction to fluoxetine - increased headaches. c/o excessive energy on Lexapro 5 mg. c/o excessive sedation and nausea on amitriptyline 10 mg Medical History OCD (obsessive compulsive disorder) Anxiety with depression ADD (attention deficit disorder) Self-imposed food restriction Obesity Surgical History S/P wisdom tooth extraction Family History Other Diabetes PGF Essential hypertension GP Heart disease PGM Hyperlipidemia GP Neoplasm PGM - breast PGF - Lukemia Paternal Grandmother Depression Social History Smoking/Tobacco Use Status: Never Smoking risk assessment performed?: Yes Alcohol Intake: current Alcohol Intake frequency: a few times a month Alcohol type: wine Drug use: Never Substance use type: does not use Number of Children: 0 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
[2024-06-18] MEDS: ACETAMINOPHEN 1,000 MG/100 ML BAG 400 MG IVPB (21:06)
[2024-06-18] MEDS: diphenhydrAMINE 50 MG/ML VIAL 25 MG IVP (21:07)
[2024-06-18] MEDS: Prochlorperazine 10 MG/2 ML VIAL 5 MG IVP (21:07)
== END 2024-06-18 22:09 | disposition home or self-care (01) ==
PROVIDERS: Emergency Provider Registered Nurse Emergency; PCP Nurse Practitioner Family
DX: G43.109 Migraine with aura, not intractable, without status migrainosus (principal)
CPT/HCPCS: 96365; 96375; 99284; J0131; J0780; J1200

== ENCOUNTER 2025-04-24 09:53 | Outpatient (REF) | payer BC, SELFPAY | END 2025-04-24 09:54 | disposition home or self-care (01) | LOC: NCHCN 09:53 | PROVIDERS: PCP Nurse Practitioner Family; Visit Provider Nurse Practitioner Family | DX: K90.41 Non-celiac gluten sensitivity (principal) | CPT/HCPCS: 82784; 83516 ==